=== PATIENT | female | born 1995 | race African-American/Black ===

== ENCOUNTER 2019-07-21 21:54 | Emergency (ER) | payer SELFPAY ==
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
[2019-07-22] MEDS ORDERED: ONDANSETRON 4 MG/2 ML VIAL ONE (00:06)
[2019-07-22] MEDS ORDERED: MORPHINE 2 MG/ML SYR ONE (00:06)
[2019-07-22 00:57] VITALS: TEMP 99.3; O2SAT 100
[2019-07-22 00:59] VITALS: BP 131/74
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
--- NOTE | 2019-07-24 18:19 | RAD REPORT ---
EXAM DESCRIPTION: CT - C Spine Wo Con - 07/22/2019 12:30 am CLINICAL HISTORY: Neck pain. COMPARISON: None. TECHNIQUE: CT scan of the cervical spine without IV contrast. This exam was performed according to our departmental dose-optimization program, which includes automated exposure control, adjustment of the mA and/or kV according to patient size and/or use of iterative reconstruction technique. FINDINGS: No acute cervical fracture or prevertebral soft tissue swelling is seen. There is straight ening of the normal cervical lordosis, which may be due to cervical collar, muscle spasm, or patient positioning. The facet joints and disc spaces are preserved. No advanced canal stenosis is identified . IMPRESSION: No acute fracture or subluxation of the cervical spine. Electronically signed by: Sammy Evans MD 07/22/2019 12:10 AM CDT Due to temporary technical issues with the PACS/Fluency reporting system, reports are being signed by the in house radiologist as a courtesy to ensure prompt reporting. The interpreting radiologist is f ully responsible for the content of the report.
== END 2019-07-22 00:53 | disposition home or self-care (01) ==
LOC: ER 21:54
DX: S16.1XXA Strain of muscle, fascia and tendon at neck level, initial encounter (principal); T81.31XA Disruption of external operation (surgical) wound, not elsewhere classified, initial encounter; V49.50XA Passenger injured in collision with unspecified motor vehicles in traffic accident, initial encounter; Z98.890 Other specified postprocedural states
CPT/HCPCS: 71046; 72125; 99285; J2270; J2405